=== PATIENT | male | born 1970 | race Caucasian/White ===

== ENCOUNTER 2017-02-24 23:38 | Emergency (ER) | payer SELFPAY ==
[~2017-02-24] VITALS: Ht 180.3 cm; Wt 95.3 kg
[~2017-02-24 23:38] MED LIST: BACTRIM DS TAB1 EAC1 ORAL; BACTRIM-DS1 EA ORAL; CLINDAMYCIN HC300 MG ORAL; COLACE100 MG ORAL; IBUPROFEN600 M1 PO; KEFLEX500 MG ORAL; NKM; NORCO 5-325 TA1 EACH ORAL; RANITIDINE HCL150 MG ORAL; VIBRAMYCIN100 MG ORAL; VICODIN 5-5001 EACH ORAL
[2017-02-25] MEDS ORDERED: VALACYCLOVIR500 MG ORAL (00:04)
[2017-02-25] MEDS ORDERED: HYDROCODON-ACE1 EA15 ORAL (00:04)
--- NOTE | 2017-02-25 00:04 | Emergency Room Report ---
History of Present Illness General Chief Complaint: Skin Rash/Abscess Source: Patient Present Illness HPI Is a 46-year-old male with a history of HIV. He's been off of his medicine for cleared after 2 years. Unknown CD4 count. Unknown viral load. He present with a rash to the right side of his body. Onset for 3 days now. No fever or chills. Pain is severe 10 out of 10. No trauma. No other complaint. Allergies: Coded Allergies: No Known Allergies (Unverified , 01/30/16) Patient History Past Medical History: see triage record, old chart reviewed, HIV Past Surgical History: other Pertinent Family History: none Social History: Reports: alcohol use, drug use - Methamphetamine, smoking Immunizations: other Reviewed Nursing Documentation: PMH: Agreed, PSxH: Agreed Nursing Documentation-PMH Hx Hypertension: No Hx Pacemaker: No Hx Asthma: No Hx COPD: No Hx Diabetes: No Hx Cancer: No Hx Gastrointestinal Problems: Yes - Ingunial hernia Hx Dialysis: No Hx Neurological Problems: No Hx Cerebrovascular Accident: No Hx Seizures: No Review of Systems Eye: Denies: blurred vision, eye pain ENT: Denies: ear pain, nose congestion, throat swelling Respiratory: Denies: cough, shortness of breath Cardiovascular: Denies: chest pain, palpitations Gastrointestinal: Denies: abdominal pain, diarrhea, nausea, vomiting Musculoskeletal: Denies: back pain, joint pain Skin: Reports: rash Neurological: Denies: headache, numbness Endocrine: Denies: increased thirst, increased urine Hematologic/Lymphatic: Denies: easy bruising All Other Systems: negative except mentioned in HPI Physical Exam Vital Signs Date Time Temp Pulse Resp B/P Pulse Ox O2 Delivery O2 Flow Rate FiO2 02/24/17 23:40 97.9 80 18 155/92 99 Room Air vitals with hypertension Sp02 EP Interpretation: reviewed, normal General Appearance: well appearing, no apparent distress, alert Head: normocephalic, atraumatic Eyes: bilateral eye EOMI, bilateral eye PERRL ENT: hearing grossly normal, normal pharynx Neck: full range of motion, supple, no meningismus Respiratory: chest non-tender, lungs clear, normal breath sounds Cardiovascular #1: regular rate, rhythm, no murmur Gastrointestinal: normal bowel sounds, non tender, no mass, no organomegaly, no bruit, non-distended Musculoskeletal: back normal, gait/station normal, normal range of motion Psychiatric: mood/affect normal Skin: warm/dry, other - He has an extensive herpetic lesion of the T12/L1 distribution on the right. Extensive vesicles. Medical Decision Making Diagnostic Impression: Primary Impression: Herpes zoster Qualified Codes: B02.9 - Zoster without complications Additional Impressions: Methamphetamine abuse HIV (human immunodeficiency virus infection) ER Course Patient with extensive shingles. Most likely because of uncontrolled HIV and high viral load with poor immune system. No systemic spread however. No fever. We'll discharge home with pain medication and anti-viral medication. Last Vital Signs Date Time Temp Pulse Resp B/P Pulse Ox O2 Delivery O2 Flow Rate FiO2 02/24/17 23:40 97.9 80 18 155/92 99 Room Air Status: improved Disposition: HOME, SELF-CARE Condition: Stable Scripts Valacyclovir Hcl* (VALTREX*) 500 Mg Tablet 1000 MG ORAL TID, #42 TAB Prov: PORFIRIO JERONIMO M.D. 02/25/17 Hydrocodone/Acetaminophen 5-325* (HYDROCODONE/ACETAMINOPHEN 5-325*) 1 Each Tablet 1 TAB ORAL Q6H Y for For Pain, #30 TAB 0 Refills Prov: PORFIRIO JERONIMO M.D. 02/25/17 Referrals: NOT CHOSEN [facility]/,REFERRING (PCP) Additional Instructions: Followup with your DrChristian in 7 days. You can also followup at [facility] for your HIV management. Return if symptom worsen. Abstain from drugs and alcohol. PORFIRIO JERONIMO M.D. Feb 25, 2017 00:04
[2017-02-25 00:08] VITALS: BP 155/92
[2017-02-25] MEDS ORDERED: ACYCLOVIR400 MG ORAL (00:11)
== END 2017-02-25 00:08 | disposition home or self-care (01) ==
LOC: EMR 23:45
DX: B02.9 Zoster without complications (principal); F15.10 Other stimulant abuse, uncomplicated
CPT/HCPCS: 96372; 99284; J1170

== ENCOUNTER 2017-03-11 12:27 | Emergency (ER) | payer SELFPAY ==
[~2017-03-11] VITALS: Ht 180.3 cm; Wt 95.3 kg
[~2017-03-11 12:27] MED LIST changes: +ACYCLOVIR400 MG ORAL; +HYDROCODON-ACE1 EA15 ORAL; +VALACYCLOVIR500 MG ORAL
[2017-03-11] MEDS ORDERED: CEPHALEXIN500 MG ORAL (13:09)
[2017-03-11] MEDS ORDERED: VALACYCLOVIR500 MG ORAL (13:09)
[2017-03-11] MEDS ORDERED: PREDNISONE20 MG ORAL (13:09)
[2017-03-11] MEDS ORDERED: NORCO 5-325 TA1 EAC1 ORAL (13:09)
[2017-03-11] MEDS ORDERED: Norco 5mg/325mg tab ORAL ONE (13:15)
[2017-03-11 14:59] VITALS: BP 119/74
[2017-03-11 15:02] VITALS: BP 119/74
--- NOTE | 2017-03-11 15:38 | Emergency Room Report ---
History of Present Illness General Chief Complaint: Skin Rash/Abscess Present Illness HPI The patient is a 38-year-old male with history of HIV presenting for shingles outbreak. The patient was seen in this emergency department 2 weeks prior for the same complaint and was unable to fill any medications due to insurance problems. He states that the rash is still the same. Pain is a 10 out of 10 burning sensation to the right abdomen. Does not radiate. Worse with touch. He denies any fever or chills Allergies: Coded Allergies: No Known Allergies (Unverified , 01/30/16) Patient History Past Medical History: see triage record Pertinent Family History: none Reviewed Nursing Documentation: PMH: Agreed, PSxH: Agreed Nursing Documentation-PMH Hx Hypertension: No Hx Pacemaker: No Hx Asthma: No Hx COPD: No Hx Diabetes: No Hx Cancer: No Hx Gastrointestinal Problems: Yes - Ingunial hernia Hx Dialysis: No Hx Neurological Problems: No Hx Cerebrovascular Accident: No Hx Seizures: No Review of Systems All Other Systems: negative except mentioned in HPI Physical Exam Vital Signs Date Time Temp Pulse Resp B/P Pulse Ox O2 Delivery O2 Flow Rate FiO2 03/11/17 12:48 98.2 88 20 119/74 100 Room Air Sp02 EP Interpretation: reviewed, normal General Appearance: no apparent distress, alert, GCS 15, non-toxic Head: normocephalic, atraumatic Eyes: bilateral eye PERRL, bilateral eye normal inspection ENT: hearing grossly normal, normal pharynx, no angioedema, normal voice Musculoskeletal: back normal, gait/station normal, normal range of motion Neurologic: alert, oriented x3, responsive, motor strength/tone normal, sensory intact, speech normal Psychiatric: judgement/insight normal, memory normal, mood/affect normal, no suicidal/homicidal ideation Skin: rash - macular with blistering of the R thoracic region. Does not pass midline. Foul odor. Erythema surrounding the area Lymphatic: no adenopathy Medical Decision Making PA Attestation Dr. Melchor is my supervising physician. Patient management was discussed with my supervising physician Diagnostic Impression: Primary Impression: Cellulitis Qualified Codes: L03.319 - Cellulitis of trunk, unspecified Additional Impression: Shingles Qualified Codes: B02.8 - Zoster with other complications ER Course The patient is a 38-year-old male with history of HIV presenting for shingles outbreak. Ddx considered include but not limited to insect bite, contact dermatitis, eczema, cellulitis, shingles, among others PE; afebrile. NAD There is a right-sided midthoracic shingles outbreak. Macular with blistering. There surrounding erythema. Tender to palpation. Foul odor present. There is yellow discharge. The patient will be discharged home with a prescription for antivirals, antibiotics, and pain medication. The patient is immunocompromised. He is to follow up with primary doctor. ER precautions given Last Vital Signs Date Time Temp Pulse Resp B/P Pulse Ox O2 Delivery O2 Flow Rate FiO2 03/11/17 15:02 98.3 82 20 119/74 100 Room Air Status: improved Disposition: HOME, SELF-CARE Condition: Improved Scripts Cephalexin* (KEFLEX*) 500 Mg Capsule 500 MG ORAL EVERY 12 HOURS, #14 CAP 0 Refills Prov: ANDERSON LANE P.A. 03/11/17 Hydrocodone Bit/Acetaminophen 5-325* (NORCO 5-325 TABLET*) 1 Each Tablet 1 TAB ORAL Q6HR Y for For Pain, #10 TAB Prov: CATERINAANANDERSON P.A. 03/11/17 Prednisone* (PREDNISONE*) 20 Mg Tablet 40 MG ORAL DAILY, #10 TAB Prov: TERZIANKARLEYY P.A. 03/11/17 Valacyclovir Hcl* (VALTREX*) 500 Mg Tablet 1000 MG ORAL Q8HR for 7 Days, TAB Prov: TERZIANANDERSON P.A. 03/11/17 Referrals: NOT CHOSEN [facility],REFERRING (PCP) Patient Instructions: Cellulitis, Shingles Additional Instructions: I discussed my findings with the patient. All questions and concerns have been answered. Treatment and medication compliance have been addressed. I advised the patient that they need to follow up with PMD in 3-5 days. Return to ED if symptoms worsen, new symptoms arise, or if needed for any reason. Patient verbalized understanding of discharge instructions. ANDERSON LANE Mar 11, 2017 15:38
== END 2017-03-11 14:30 | disposition home or self-care (01) ==
LOC: EMR 14:00
DX: B02.8 Zoster with other complications (principal); L03.319 Cellulitis of trunk, unspecified
CPT/HCPCS: 99284

== ENCOUNTER 2018-04-07 10:45 | Emergency (ER) | payer MEDICAID ==
[~2018-04-07] VITALS: Ht 185.4 cm; Wt 81.6 kg
[~2018-04-07 10:45] MED LIST changes: +CEPHALEXIN500 MG ORAL; +NORCO 5-325 TA1 EAC1 ORAL; +PREDNISONE20 MG ORAL
[2018-04-07] MEDS ORDERED: Albuterol ud Inhalation HHN ONE (11:00)
[2018-04-07 11:10] VITALS: BP 148/98
[2018-04-07] MEDS ORDERED: TESSALON PERLE100 MG ORAL (11:25)
[2018-04-07] MEDS ORDERED: VENTOLIN HFA18 GM INH (11:25)
--- NOTE | 2018-04-07 11:25 | Emergency Room Report ---
History of Present Illness General Chief Complaint: Upper Respiratory Illness Source: Patient Present Illness HPI This patient c/o nonproductive cough one day. No fever. No cp. He had a hernia repair at [facility] about a week ago and had been recuperating fine. He does smoke 1/ 2 ppd. No leg pain/swelling. Allergies: Coded Allergies: No Known Allergies (Unverified , 01/30/16) Nursing Documentation-PMH Hx Hypertension: No Hx Pacemaker: No Hx Asthma: No Hx COPD: No Hx Diabetes: No Hx Cancer: No Hx Dialysis: No Hx Neurological Problems: No Hx Cerebrovascular Accident: No Hx Seizures: No Review of Systems Constitutional: Denies: fever Eye: Denies: acuity changes Respiratory: Reports: see HPI, cough; Denies: shortness of breath Cardiovascular: Denies: chest pain Gastrointestinal: Denies: nausea, vomiting Skin: Denies: rash Neurological: Denies: headache All Other Systems: negative except mentioned in HPI Physical Exam Vital Signs Date Time Temp Pulse Resp B/P (MAP) Pulse Ox O2 Delivery O2 Flow Rate FiO2 04/07/18 10:50 98.2 86 18 148/98 98 Room Air 98.2 General Appearance: well appearing, no apparent distress Head: normocephalic, atraumatic ENT: hearing grossly normal, normal voice Neck: full range of motion, supple Respiratory: no respiratory distress, speaking full sentences, other - frequent nonproductive cough; tobacco odor Musculoskeletal: no calf tenderness Neurologic: alert, normal gait Psychiatric: mood/affect normal Skin: no rash Medical Decision Making Diagnostic Impression: Primary Impression: Acute bronchitis Chest X-Ray Diagnostic Results Chest X-Ray Diagnostic Results : Chest X-Ray Ordered: Yes # of Views/Limited/Complete: 1 View Indication: Shortness of Breath EP Interpretation: Yes Interpretation: no consolidation, no effusion, no pneumothorax, no acute cardiopulmonary disease Last Vital Signs Date Time Temp Pulse Resp B/P (MAP) Pulse Ox O2 Delivery O2 Flow Rate FiO2 04/07/18 11:10 98.2 86 18 148/98 98 Room Air 98.2 Scripts Benzonatate* (TESSALON PERLE*) 100 Mg Capsule 200 MG ORAL THREE TIMES A DAY, #30 PERLE Prov: Lai Asher M.D. 04/07/18 Albuterol Sulfate (VENTOLIN HFA) 18 Gm Hfa.aer.ad 1 PUFF INH EVERY 6 HOURS, #18 GM 0 Refills Prov: Lai sAher M.D. 04/07/18 [facility] ([facility]P) Patient Instructions: Acute Bronchitis, [id number] Lai Asher M.D. Apr 07, 2018 11:25
[2018-04-07 11:46] VITALS: BP 118/77
--- NOTE | 2018-04-07 13:44 | Diagnostic Imaging Report ---
Indication: Shortness of breath Technique: One view of the chest Comparison: none Findings: Lungs and pleural spaces are clear. Heart size is normal Impression: No acute process
== END 2018-04-07 11:50 | disposition home or self-care (01) ==
LOC: EMR 11:14
DX: J20.9 Acute bronchitis, unspecified (principal); F17.210 Nicotine dependence, cigarettes, uncomplicated
CPT/HCPCS: 71045; 94640; 94664; 99284

== ENCOUNTER 2018-05-14 05:12 | Emergency (ER) | payer MEDICAID ==
[~2018-05-14] VITALS: Ht 180.3 cm; Wt 88.5 kg
[~2018-05-14 05:12] MED LIST changes: +TESSALON PERLE100 MG ORAL; +VENTOLIN HFA18 GM INH
[2018-05-14 05:37] VITALS: BP 133/86
[2018-05-14] MEDS ORDERED: ACYCLOVIR400 MG ORAL (05:52)
--- NOTE | 2018-05-14 05:56 | Emergency Room Report ---
History of Present Illness General Chief Complaint: Skin Rash/Abscess Source: Medical Record Present Illness HPI Patient is a 48-year-old male who presented after a painless ulcer to his penis. This had been present for several weeks. Patient had prior history of HIV. He is currently off medications. Patient reported having increased of lesion to the dorsum. He denies recent trauma. He states that he had recent productive sex prior to lesion appearing. He denies any fever or pain to the lesion. He reports having a previous negative syphilis test. Allergies: Coded Allergies: No Known Allergies (Unverified , 01/30/16) Patient History Reviewed Nursing Documentation: PMH: Agreed; PSxH: Agreed Nursing Documentation-PMH Past Medical History: No History, Except For Hx Hypertension: No Hx Pacemaker: No Hx Asthma: No Hx COPD: No Hx Diabetes: No Hx Cancer: No Hx Dialysis: No Hx Neurological Problems: No Hx Cerebrovascular Accident: No Hx Seizures: No Review of Systems All Other Systems: negative except mentioned in HPI Physical Exam Vital Signs Date Time Temp Pulse Resp B/P (MAP) Pulse Ox O2 Delivery O2 Flow Rate FiO2 05/14/18 05:19 97.6 95 21 133/86 96 Room Air 97.5 General Appearance: well appearing, no apparent distress, alert, GCS 15 Head: normocephalic, atraumatic ENT: hearing grossly normal, normal voice, other - labial herpes Neck: full range of motion, supple Respiratory: no respiratory distress, speaking full sentences Genitourinary: other - penile ulcer Musculoskeletal: no calf tenderness Neurologic: normal inspection, alert, oriented x3, telephone information clerk III-XII nml as tested, normal gait Psychiatric: mood/affect normal Skin: other - ulcer to dosum of penile shaft about 0.3cm in diameter no bleeding Medical Decision Making Diagnostic Impression: Primary Impression: Penile ulcer ER Course Presented for the ulcer. The differential diagnosis included but was not limited to syphilis, chancroid, traumatic injury, basal cell carcinoma among others. Patient has a benign exam and does not appear to require any further imaging or laboratory testing at this time. The patient be to treated for syphilis. He was advised to follow-up with his HIV doctor for further evaluation and treatment of STDs. He is given prescription for acyclovir.The patient is advised to follow up with primary care doctor in 1-2 days. Patient is advised to return if any worsening condition or if any changes in status that are concerning. This report is dictated with [employer] janitor and cleaner software which may occasionally lead to discrepancies related to use of this software. Last Vital Signs Date Time Temp Pulse Resp B/P (MAP) Pulse Ox O2 Delivery O2 Flow Rate FiO2 05/14/18 05:37 97.5 95 21 133/86 96 Room Air 97.5 Status: improved Disposition: HOME, SELF-CARE Condition: Stable Scripts Acyclovir* (ACYCLOVIR*) 400 Mg Tablet 400 MG ORAL FIVE TIMES A DAY, #35 TAB Prov: Zion Hernandez MD 05/14/18 Patient Instructions: Herpes Labialis, Skin Ulcer Zion Hernandez MD May 14, 2018 05:56
[2018-05-14] MEDS ORDERED: Bicillin LA 2.4MMU/4ML SYR IM ONE (06:00)
[2018-05-14 06:14] VITALS: BP 133/86
== END 2018-05-14 06:15 | disposition home or self-care (01) ==
LOC: EMR 05:48
DX: N48.5 Ulcer of penis (principal)
CPT/HCPCS: 96372; 99283

== ENCOUNTER 2018-07-23 21:29 | Emergency (ER) | payer MEDICAID ==
[~2018-07-23] VITALS: Ht 180.3 cm; Wt 90.7 kg
[2018-07-23 21:50] VITALS: BP 118/76
[2018-07-23] MEDS ORDERED: Dicyclomine HCl 10mg/5ml oral soln ORAL ONE (22:00)
[2018-07-23] MEDS ORDERED: Lidocaine 2% Visc 15ml soln ORAL ONE (22:00)
[2018-07-23] MEDS ORDERED: Mylanta II UD 30ml ORAL ONE (22:00)
--- NOTE | 2018-07-23 22:40 | Diagnostic Imaging Report ---
EXAM: XR Chest, 1 View CLINICAL HISTORY: ABD PAIN TECHNIQUE: Frontal view of the chest. COMPARISON: Chest radiograph dated 04/07/18. FINDINGS: Lungs: Unremarkable. No consolidation. Pleural space: Unremarkable. No pneumothorax. Heart: Unremarkable. No cardiomegaly. Mediastinum: Unremarkable. Bones/joints: Unremarkable. Upper abdomen: Mild elevation of the left hemidiaphragm. IMPRESSION: No radiographic evidence of acute cardiopulmonary disease.
[2018-07-23] MEDS ORDERED: RANITIDINE HCL150 MG ORAL (22:57)
[2018-07-23 23:01] VITALS: BP 118/76
--- NOTE | 2018-07-24 01:14 | Emergency Room Report ---
History of Present Illness General Chief Complaint: General Complaint Source: Patient Present Illness HPI 48-year-old male presents ED for evaluation. Patient presenting with painful swallowing 2 days. Throbbing, 8 out of 10, nonradiating. Denies fevers or chills. Denies cough. Denies chest pain or shortness of breath. States he is able to keep food down. Denies nausea or vomiting. Notes history of HIV and states he is compliant with his medications however his CD4 counts are low. No other aggravating relieving factors. Denies any other associated symptoms Allergies: Coded Allergies: No Known Allergies (Unverified , 01/30/16) Patient History Past Medical History: HIV Pertinent Family History: none Social History: Denies: smoking, alcohol use, drug use Immunizations: UTD Reviewed Nursing Documentation: PMH: Agreed; PSxH: Agreed Nursing Documentation-PMH Hx Hypertension: No Hx Pacemaker: No Hx Asthma: No Hx COPD: No Hx Diabetes: No Hx Cancer: No Hx Dialysis: No Hx Neurological Problems: No Hx Cerebrovascular Accident: No Hx Seizures: No Review of Systems All Other Systems: negative except mentioned in HPI Physical Exam Vital Signs Date Time Temp Pulse Resp B/P (MAP) Pulse Ox O2 Delivery O2 Flow Rate FiO2 18 21:38 98.6 88 16 118/76 96 Room Air Sp02 EP Interpretation: reviewed, normal General Appearance: no apparent distress, alert, GCS 15, non-toxic Head: normocephalic Eyes: bilateral eye normal inspection, bilateral eye PERRL ENT: hearing grossly normal, normal pharynx, no angioedema, normal voice, other - no exudates Neck: full range of motion, supple, no meningismus, supple/symm/no masses Respiratory: chest non-tender, lungs clear, normal breath sounds, speaking full sentences Cardiovascular #1: regular rate, rhythm, no edema Gastrointestinal: normal inspection Rectal: deferred Genitourinary: no CVA tenderness Musculoskeletal: normal inspection Neurologic: alert, oriented x3, responsive, motor strength/tone normal, sensory intact, speech normal Psychiatric: normal inspection Skin: normal inspection Lymphatic: normal inspection Medical Decision Making Diagnostic Impression: Primary Impression: Dysphagia Qualified Codes: R13.10 - Dysphagia, unspecified ER Course Hospital Course 48-year-old male presents to ED complaining of painful swallowing Differential diagnoses include: thrush, pharyngitis, GERD Clinical course Patient placed on stretcher. After initial history, physical exam reveals a middle aged male in no acute distress. Bilateral TM unremarkable. There is no pharyneal erythema. no exudates. no thrush. no lymphadenopathy EKGnormal sinus rhythm no acute ischemic changes interpreted by me Chest x-ray no acute process Patient given GI cocktail and Pepcid with symptoms improved. Consideration for esophagitis versus GERD. We will discharge with trial of zantac. Safe for discharge close outpatient follow-up with PMD Diagnosis - dysphagia Stable and discharged home with prescriptions for zantac. Instructed to followup with PMD. return to ED if symptoms recur or worsen EKG Diagnostic Results Rate: normal Rhythm: NSR ST Segments: no acute changes ASA given to the pt in ED: No Rhythm Strip Diag. Results EP Interpretation: yes Rhythm: NSR, no PVC's, no ectopy Chest X-Ray Diagnostic Results Chest X-Ray Diagnostic Results : Chest X-Ray Ordered: Yes # of Views/Limited/Complete: 1 View Indication: Chest Pain EP Interpretation: Yes Interpretation: no consolidation, no effusion, no pneumothorax, no acute cardiopulmonary disease Impression: No acute disease Electronically Signed by: Electronically signed by Hayden Vance MD Last Vital Signs Date Time Temp Pulse Resp B/P (MAP) Pulse Ox O2 Delivery O2 Flow Rate FiO2 07/23/18 23:01 98.6 83 16 118/76 96 Room Air Status: improved Disposition: HOME, SELF-CARE Condition: Stable Scripts Ranitidine Hcl* (ZANTAC*) 150 Mg Tablet 150 MG ORAL TWICE A DAY, #30 TAB Prov: Hayden Vance MD 07/23/18 Patient Instructions: Gastroesophageal Reflux Disease, Adult, [id number] Hayden Vance MD Jul 24, 2018 01:14
== END 2018-07-23 23:02 | disposition home or self-care (01) ==
LOC: EMR 22:15
DX: R13.10 Dysphagia, unspecified (principal)
CPT/HCPCS: 71045; 93005; 99283

== ENCOUNTER 2018-10-11 23:44 | Emergency (ER) | payer MEDICAID ==
[~2018-10-11] VITALS: Ht 180.3 cm; Wt 90.7 kg
[2018-10-11] MEDS ORDERED: BIKTARVY 50-201 EACH PO (23:52)
[2018-10-12 00:05] VITALS: BP 112/86
--- NOTE | 2018-10-12 00:05 | NUR ---
ED Nurse Note: RECIEVED PT FROM HOME ON [facility] AWAKE, ALERT AND ORIENTED X 4, PT WITH C/O FLU LIKE S/S FOR PAST 4 DAYS, HEADACHE, GEN WEAKNESS, NAUSEA AND JUST NOT FEELING WELL, PT DENEIS CP, OR RESPIRATORY DISTRESS, MILD COUGH NOTED, NON-PRODUCTIVE, PT PLACED ON MONITORING, WILL RESUME CARE ORDERED AND CLOSELY MONITOR.
[2018-10-12] MEDS ORDERED: Albuterol ud Inhalation HHN ONE (00:30)
[2018-10-12] MEDS ORDERED: ALBUTEROL SULF8.5 GM INH (00:56)
[2018-10-12] MEDS ORDERED: TAMIFLU75 MG ORAL (00:56)
[2018-10-12] MEDS ORDERED: IBUPROFEN600 MG ORAL (00:56)
--- NOTE | 2018-10-12 00:57 | Emergency Room Report ---
History of Present Illness General Chief Complaint: Upper Respiratory Illness Source: Patient Present Illness [facility] This is a 48-year-old male with history HIV. He presents with fever and shortness of breath and cough for the last 2 days. Diffuse body pain. No nausea no vomiting. Decreased appetite. Pain is 9 out of 10. Coughing is nonproductive nature. Denies any other complaint. Allergies: Coded Allergies: No Known Allergies (Unverified , 01/30/16) Patient History Past Medical History: see triage record, old chart reviewed, HIV Past Surgical History: none Pertinent Family History: none Social History: Denies: smoking Immunizations: other Reviewed Nursing Documentation: PMH: Agreed; PSxH: Agreed Nursing Documentation-PMH Past Medical History: No History, Except For Hx Hypertension: No Hx Pacemaker: No Hx Asthma: No Hx COPD: No Hx Diabetes: No Hx Cancer: No Hx Dialysis: No Hx Neurological Problems: No Hx Cerebrovascular Accident: No Hx Seizures: No Review of Systems Constitutional: Reports: fever, malaise, weakness Eye: Denies: eye pain, blurred vision ENT: Denies: ear pain, nose congestion, throat swelling Respiratory: Reports: cough, shortness of breath Cardiovascular: Denies: chest pain, palpitations Gastrointestinal: Denies: abdominal pain, diarrhea, nausea, vomiting Musculoskeletal: Reports: muscle pain; Denies: back pain, joint pain Skin: Denies: rash Neurological: Denies: headache, numbness Endocrine: Denies: increased thirst, increased urine Hematologic/Lymphatic: Denies: easy bruising All Other Systems: negative except mentioned in HPI Physical Exam Vital Signs Date Time Temp Pulse Resp B/P (MAP) Pulse Ox O2 Delivery O2 Flow Rate FiO2 10/11/18 23:47 99.1 109 28 112/86 95 10/12/18 00:46 Room Air 21 vitals with low-grade fever Sp02 EP Interpretation: reviewed, normal General Appearance: well appearing, no apparent distress, alert Head: normocephalic, atraumatic Eyes: bilateral eye PERRL, bilateral eye EOMI ENT: hearing grossly normal, normal pharynx Neck: full range of motion, supple, no meningismus Respiratory: chest non-tender, lungs clear, normal breath sounds Cardiovascular #1: regular rate, rhythm, no murmur Gastrointestinal: normal bowel sounds, non tender, no mass, no organomegaly, no bruit, non-distended Musculoskeletal: back normal, gait/station normal, normal range of motion Psychiatric: mood/affect normal Skin: warm/dry Medical Decision Making Diagnostic Impression: Primary Impression: Influenza-like illness ER Course Patient with flulike illness. No evidence of ACS, PE, dissection to name a few. Chest x-ray clear. Even though it has been 48 hours, we'll put him on Tamiflu because of his HIV status. Chest X-Ray Diagnostic Results Chest X-Ray Diagnostic Results : Chest X-Ray Ordered: Yes # of Views/Limited/Complete: 1 View Indication: Shortness of Breath EP Interpretation: Yes Interpretation: no consolidation, no effusion, no pneumothorax, no acute cardiopulmonary disease Impression: No acute disease Electronically Signed by: Bryan Pereyra MD Last Vital Signs Date Time Temp Pulse Resp B/P (MAP) Pulse Ox O2 Delivery O2 Flow Rate FiO2 10/12/18 00:47 95 21 95 Room Air 21 10/11/18 23:47 99.1 112/86 Status: improved Disposition: HOME, SELF-CARE Condition: Stable Scripts Oseltamivir Phosphate (Tamiflu) 75 Mg Capsule 75 MG ORAL TWICE A DAY, #10 CAP Prov: Bryan Pereyra MD 10/12/18 Albuterol Sulfate* (ALBUTEROL SULFATE MDI*) 8.5 Gm Hfa.aer.ad 2 PUFF INH Q4H PRN for cough/wheezing, #1 EA 0 Refills Prov: Bryan Pereyra MD 10/12/18 Ibuprofen* (MOTRIN*) 600 Mg Tablet 600 MG ORAL THREE TIMES A DAY, #30 TAB 0 Refills Prov: Bryan Pereyra MD 10/12/18 Ref[facility]: [facility] (PCP) Additional Instructions: Increase fluids. Follow-up with your DrChristian in 3-5 days for recheck. Return if worse. Bryan Pereyra MD Oct 12, 2018 00:57
[2018-10-12 01:00] VITALS: BP 107/84
--- NOTE | 2018-10-12 01:05 | NUR ---
PT BEING D/C TO HOME, PT GIVEN F/U INFO, AFTER CARE INSTRUCTIONS AND RE-VERBALIZES PROPER MEDICATION ADMINISTRATION, PT IS AMBULATORY, NO CP, NO SOB, ARMBAND REMOVED, NAD NOTED DURING D/C TO HOME.
--- NOTE | 2018-10-12 01:10 | NUR ---
ED Nurse Note: PT NOTED TO NOT HAVE HAD MEDS, MEDS GIVEN, WILL DISCHARGE AFTER MED EFFECTIVENESS DONE, AWARE, PT RESTING IN BED QUIETLY.
[2018-10-12 02:45] VITALS: BP 124/62
[2018-10-12 03:00] VITALS: BP 124/62
--- NOTE | 2018-10-12 03:00 | NUR ---
ED Nurse Note: MEDS GIVEN EFFECTIVE, PT NOW BEING D/C TO HOME, PT IS AWAKE, ALERT AND ORIENTED X 4, AMBULATORY, NO CP, NO SOB, PAIN LEVEL AT 3/10, PT FAMILY ARRIVED FOR HIS TRANSPORT, PT ARMBAND REMOVED, GIVEN F/U INFO,A FTER CARE INSTRUCTIONS AND PRESCRIPTIONS, NAD NOTED UDRING D/C TO HOME.
--- NOTE | 2018-10-12 09:24 | Diagnostic Imaging Report ---
Indication: Shortness of breath Technique: One view of the chest Comparison: 07/23/2018 Findings: Suboptimal inspiration currently. Lungs and pleural spaces are clear. The heart size is normal. Impression: No acute process
== END 2018-10-12 03:05 | disposition home or self-care (01) ==
LOC: EMR 23:59
DX: J11.1 Influenza due to unidentified influenza virus with other respiratory manifestations (principal)
CPT/HCPCS: 71045; 94640; 94664; 99284

== ENCOUNTER 2019-02-28 02:42 | Emergency (ER) | payer MEDICAID ==
[~2019-02-28] VITALS: Ht 180.3 cm; Wt 95.3 kg
[~2019-02-28 02:42] MED LIST changes: +ALBUTEROL SULF8.5 GM INH; +BIKTARVY 50-201 EACH PO; +IBUPROFEN600 MG ORAL; +TAMIFLU75 MG ORAL
--- NOTE | 2019-02-28 02:53 | NUR ---
ED Nurse Note: WAlk-in patient presents with complaints of trouble swallowing x 1 week.
[2019-02-28 02:54] VITALS: BP 127/95
[2019-02-28] MEDS ORDERED: Clindamycin 150mg cap ORAL ONE (03:00)
[2019-02-28] MEDS ORDERED: AUGMENTIN 875-1 EAC1 ORAL (03:04)
--- NOTE | 2019-02-28 03:04 | Emergency Room Report ---
History of Present Illness General Chief Complaint: Upper Respiratory Illness Source: Patient Present Illness HPI This is a 48-year-old male with no past medical history. He presents with chief complaint of difficulty swallowing. Onset the last 3 to 4 days. No fever chills but most of his pain is on the left side. Worse with eating. No drooling. No fever chills but does have left ear pain also. No cough or congestion. Allergies: Coded Allergies: No Known Allergies (Unverified , 01/30/16) Patient History Past Medical History: see triage record, old chart reviewed Past Surgical History: none Pertinent Family History: none Social History: Denies: smoking Immunizations: other Reviewed Nursing Documentation: PMH: Agreed; PSxH: Agreed Nursing Documentation-PMH Hx Hypertension: No Hx Pacemaker: No Hx Asthma: No Hx COPD: No Hx Diabetes: No Hx Cancer: No Hx Dialysis: No Hx Cerebrovascular Accident: No Hx Seizures: No Review of Systems Eye: Denies: eye pain, blurred vision ENT: Reports: throat swelling; Denies: ear pain, nose congestion Respiratory: Denies: cough, shortness of breath Cardiovascular: Denies: chest pain, palpitations Gastrointestinal: Denies: abdominal pain, diarrhea, nausea, vomiting Musculoskeletal: Denies: back pain, joint pain Skin: Denies: rash Neurological: Denies: headache, numbness Endocrine: Denies: increased thirst, increased urine Hematologic/Lymphatic: Denies: easy bruising All Other Systems: negative except mentioned in HPI Physical Exam Vital Signs Date Time Temp Pulse Resp B/P (MAP) Pulse Ox O2 Delivery O2 Flow Rate FiO2 02/28/19 02:50 97.9 82 21 127/95 (106) 97 Room Air Vitals normal Sp02 EP Interpretation: reviewed, normal General Appearance: well appearing, no apparent distress, alert Head: normocephalic, atraumatic Eyes: bilateral eye PERRL, bilateral eye EOMI ENT: hearing grossly normal, normal pharynx, tonsillar swelling, pharyngeal erythema, tonsillar exudate, other - No trismus. Left tonsil was enlarged with exudates and erythema. Neck: full range of motion, supple, no meningismus Respiratory: chest non-tender, lungs clear, normal breath sounds Cardiovascular #1: regular rate, rhythm, no murmur Gastrointestinal: normal bowel sounds, non tender, no mass, no organomegaly, no bruit, non-distended Musculoskeletal: back normal, gait/station normal, normal range of motion Psychiatric: mood/affect normal Medical Decision Making Diagnostic Impression: Primary Impression: Acute tonsillitis Qualified Codes: J03.90 - Acute tonsillitis, unspecified ER Course Patient presents with acute tonsillitis. No evidence of peritonsillar abscess or retropharyngeal abscess or Phong angina. Will discharge home. Dose of antibiotics given here. Last Vital Signs Date Time Temp Pulse Resp B/P (MAP) Pulse Ox O2 Delivery O2 Flow Rate FiO2 02/28/19 02:54 82 21 Room Air 02/28/19 02:54 97.9 127/95 97 Status: unchanged Disposition: HOME, SELF-CARE Condition: Stable Scripts Amoxicillin/Potassium Clav 875-125* (AUGMENTIN 875-125 TABLET*) 1 Each Tablet 1 TAB ORAL TWICE A DAY, #14 TAB Prov: Bryan Pereyra MD 02/28/19 Referrals: [facility] (PCP) Additional Instructions: Increase fluids. Salt water gargle. Follow-up with your doctor in 3 to 5 days for recheck. Return if worse. Bryan Pereyra MD Feb 28, 2019 03:04
[2019-02-28 03:13] VITALS: BP 127/95
[2019-02-28 03:14] VITALS: BP 127/95
--- NOTE | 2019-02-28 03:14 | NUR ---
Medicated as ordered, tolerated well, breathing improved, no pain at this time.
== END 2019-02-28 03:15 | disposition home or self-care (01) ==
LOC: EMR 02:53
DX: J03.90 Acute tonsillitis, unspecified (principal)
CPT/HCPCS: 99282; J7512

== ENCOUNTER 2019-05-24 22:04 | Emergency (ER) | payer MEDICAID ==
[~2019-05-24] VITALS: Ht 182.9 cm; Wt 91.6 kg
[~2019-05-24 22:04] MED LIST changes: +AUGMENTIN 875-1 EAC1 ORAL
[2019-05-24] MEDS ORDERED: LORazepam Inj 2mg/ml 1ml IV ONE (22:15)
[2019-05-24] MEDS ORDERED: Ipratropium 0.02% Inh Soln 2.5ml UD HHN ONE (22:15)
[2019-05-24] MEDS ORDERED: Albuterol ud Inhalation HHN ONE (22:15)
[2019-05-24 22:17] VITALS: BP 144/86
--- NOTE | 2019-05-24 22:18 | NUR ---
ED Nurse Note: PT AMBULATED TO ED C/O SOB FOR 2-3 MONTHS. PT STATES HE SMOKED METH 2 HOURS PRIOR TO ARRIVAL. AO4. NAD. VSS.
--- NOTE | 2019-05-24 22:19 | Emergency Room Report ---
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 Allergies: Coded Allergies: No Known Allergies (Unverified , 01/30/16) Patient History Past Medical History: see triage record Social History: Reports: smoking, drug use - Amphetamine Reviewed Nursing Documentation: PMH: Agreed; PSxH: Agreed Nursing Documentation-PMH Past Medical History: No History, Except For Hx Hypertension: No Hx Pacemaker: No Hx Asthma: No Hx COPD: No Hx Diabetes: No Hx Cancer: No Hx Dialysis: No Hx Cerebrovascular Accident: No Hx Seizures: No Review of Systems All Other Systems: negative except mentioned in HPI Physical Exam Vital Signs Date Time Temp Pulse Resp B/P (MAP) Pulse Ox O2 Delivery O2 Flow Rate FiO2 05/24/19 22:12 97.0 88 13 94/77 (83) 92 Room Air Sp02 EP Interpretation: reviewed, normal General Appearance: well appearing, no apparent distress, alert Head: normocephalic, atraumatic Eyes: bilateral eye PERRL, bilateral eye EOMI ENT: uvula midline, moist mucus membranes Neck: supple, thyroid normal, supple/symm/no masses Respiratory: lungs clear, no respiratory distress, no retraction, no accessory muscle use, decreased breath sounds Cardiovascular #1: normal peripheral pulses, regular rate, rhythm, no edema, no gallop, no murmur Gastrointestinal: non tender, soft, no guarding, no rebound Musculoskeletal: normal inspection Neurologic: alert, oriented x3 Psychiatric: anxious Skin: no rash, warm/dry Medical Decision Making Diagnostic Impression: Primary Impression: Methamphetamine abuse ER Course 49-year-old male presents with acute medicine amphetamine use, patient in no acute distress however is very anxious, differential diagnosis includes ACS, drug abuse, pneumonia, chest pain EKG, no acute changes, chest x-ray no acute pathology Patient given Ativan with resolution of his symptoms patient was observed until he sobered He was counseled to stop utilizing methamphetamine Disposition home with return precautions Laboratory Tests Test 05/24/19 22:30 05/24/19 23:30 White Blood Count 6.1 K/UL (4.8-10.8) Red Blood Count 6.31 M/UL (4.70-6.10) H Hemoglobin 17.8 G/DL (14.2-18.0) Hematocrit 53.2 % (42.0-52.0) H Mean Corpuscular Volume 84 FL (80-99) Mean Corpuscular Hemoglobin 28.2 PG (27.0-31.0) Mean Corpuscular Hemoglobin Concent 33.4 G/DL (32.0-36.0) Red Cell Distribution Width 12.2 % (11.6-14.8) Platelet Count 251 K/UL (150-450) Mean Platelet Volume 7.0 FL (6.5-10.1) Neutrophils (%) (Auto) 71.8 % (45.0-75.0) Lymphocytes (%) (Auto) 17.2 % (20.0-45.0) L Monocytes (%) (Auto) 9.7 % (1.0-10.0) Eosinophils (%) (Auto) 0.7 % (0.0-3.0) Basophils (%) (Auto) 0.6 % (0.0-2.0) Prothrombin Time 12.5 SEC (9.30-11.50) H Prothrombin Time INR 1.2 (0.9-1.1) H PTT 25 SEC (23-33) Sodium Level 138 MMOL/L (136-145) Potassium Level 3.9 MMOL/L (3.5-5.1) Chloride Level 104 MMOL/L (98-107) Carbon Dioxide Level 24 MMOL/L (21-32) Anion Gap 11 mmol/L (5-15) Blood Urea Nitrogen 26 mg/dL (7-18) H Creatinine 1.8 MG/DL (0.55-1.30) H Estimate Glomerular Filtration Rate 40.0 mL/min (>60) Glucose Level 91 MG/DL (74-106) Calcium Level 9.0 MG/DL (8.5-10.1) Total Bilirubin 1.2 MG/DL (0.2-1.0) H Direct Bilirubin 0.3 MG/DL (0.0-0.3) Aspartate Amino Transferase (AST) 106 U/L (15-37) H Alanine Aminotransferase (ALT) 81 U/L (12-78) H Alkaline Phosphatase 82 U/L (46-116) Troponin I 0.019 ng/mL (0.000-0.056) Pro-B-Type Natriuretic Peptide 4584 pg/mL (0-125) H Total Protein 6.9 G/DL (6.4-8.2) Albumin 3.5 G/DL (3.4-5.0) Globulin 3.4 g/dL Albumin/Globulin Ratio 1.0 (1.0-2.7) Lipase 60 U/L (73-393) L Urine Opiates Screen Negative (NEGATIVE) Urine Barbiturates Screen Negative (NEGATIVE) Phencyclidine (PCP) Screen Negative (NEGATIVE) Urine Amphetamines Screen Positive (NEGATIVE) H Urine Benzodiazepines Screen Negative (NEGATIVE) Urine Cocaine Screen Negative (NEGATIVE) Urine Marijuana (THC) Screen Negative (NEGATIVE) EKG Diagnostic Results EKG Time: 21:13 EP Interpretation: NSR, rate 83, right axis deviation, no acute ST elevations Rate: normal Rhythm: NSR Rhythm Strip Diag. Results Rhythm Strip Time: 22:19 EP Interpretation: yes Rate: 91 Rhythm: NSR, no PVC's, no ectopy Chest X-Ray Diagnostic Results Chest X-Ray Diagnostic Results : Chest X-Ray Ordered: Yes # of Views/Limited/Complete: 1 View Indication: Chest Pain EP Interpretation: Yes Interpretation: no consolidation, no effusion, no pneumothorax, no acute cardiopulmonary disease Impression: No acute disease Electronically Signed by: Nolan Oconnor MD Last Vital Signs Date Time Temp Pulse Resp B/P (MAP) Pulse Ox O2 Delivery O2 Flow Rate FiO2 05/24/19 22:12 97.0 88 13 94/77 (83) 92 Room Air Disposition: HOME, SELF-CARE Condition: Stable Referrals: [facility] Patient Instructions: Stimulant Use Disorder-Methamphetamines Additional Instructions: The patient was provided with discharge instructions, notified to follow-up with a primary care doctor and or specialist in the next 24-48 hours, and to return to the ED if they have worsening of their symptoms. Please note that this report is being documented using [employer] technology. This can lead to erroneous entry secondary to incorrect interpretation by the dictating instrument. Nolan Oconnor MD May 24, 2019 22:19
--- NOTE | 2019-05-24 22:20 | NUR ---
ED Nurse Note: IV ACCESS ESTABLISHED. BLOOD COLLECTED; SENT DOWN TO LAB.
[2019-05-24 22:49] LABS: BASOPHILS % (AUTO) 0.6 % (0.0-2.0); EOSINOPHILS % (AUTO) 0.7 % (0.0-3.0); HEMATOCRIT 53.2 % (42.0-52.0); HEMOGLOBIN 17.8 G/DL (14.2-18.0); LYMPHOCYTES % (AUTO) 17.2 % (20.0-45.0); MEAN CORPUSCULAR VOLUME 84 FL (80-99); MONOCYTES % (AUTO) 9.7 % (1.0-10.0); NEUTROPHILS % (AUTO) 71.8 % (45.0-75.0); PLATELET COUNT 251 K/UL (150-450); RED BLOOD COUNT 6.31 M/UL (4.70-6.10); RED CELL DISTRIBUTION WIDTH 12.2 % (11.6-14.8); WHITE BLOOD COUNT 6.1 K/UL (4.8-10.8)
[2019-05-24 23:02] LABS: INR 1.2 (0.9-1.1)
[2019-05-24 23:03] LABS: ANION GAP 11 mmol/L (5-15); BLOOD UREA NITROGEN 26 mg/dL (7-18); CARBON DIOXIDE 24 MMOL/L (21-32); CHLORIDE 104 MMOL/L (98-107); CREATININE 1.8 MG/DL (0.55-1.30); POTASSIUM 3.9 MMOL/L (3.5-5.1); SODIUM 138 MMOL/L (136-145)
[2019-05-24 23:14] LABS: ALANINE AMINOTRANSFERASE 81 U/L (12-78); ALBUMIN 3.5 G/DL (3.4-5.0); ALKALINE PHOSPHATASE 82 U/L (46-116); ASPARTATE AMINO TRANSFERASE 106 U/L (15-37); BILIRUBIN,TOTAL 1.2 MG/DL (0.2-1.0)
[2019-05-24 23:19] LABS: BILIRUBIN,DIRECT 0.3 MG/DL (0.0-0.3)
--- NOTE | 2019-05-24 23:30 | NUR ---
ED Nurse Note: URINE COLLECTED; SENT DOWN TO LAB.
--- NOTE | 2019-05-25 00:42 | NUR ---
Note nerissaone in EDM - 05/25/19 at 0132 by [facility] ED Nurse Note: PATIENT REFUSED ADMISSION. EXPLAINED RISK AND BENEFITS X 3; PT REFUSED. ERMD NOTIFIED. ERMD DISCUSSED CARE WITH PT; STILL REFUSED. PER PT, OFFSPRING LEFT AT HOME AND CANNOT BE ADMITTED. SIGNED AMA.
[2019-05-25 01:39] VITALS: BP 135/86
--- NOTE | 2019-05-25 01:39 | NUR ---
ED Nurse Note: patient sleeping in bed with nad. vss. respirations even and unlabored
--- NOTE | 2019-05-25 03:15 | NUR ---
ED Nurse Note: patient sleeping in bed with nad. vitals stable. offered nourishment and toiletting; patient refused.
[2019-05-25 03:17] VITALS: BP 129/91
--- NOTE | 2019-05-25 04:16 | NUR ---
ED Nurse Note: patient awake alert and oriented x4. provided pt with nourishment. pt states he wants to go home. able to walk to bathroom with steady gait.
--- NOTE | 2019-05-25 04:30 | NUR ---
ER DISCHARGE NOTE: Patient is cleared to be discharged per ERMD, pt is aox4, on room air, with stable vital signs. pt was given dc and prescription instructions, pt was able to verbalize understanding, pt id band and iv site removed without complications. pt is able to ambulate with steady gait. pt took all belongings.
[2019-05-25 04:41] VITALS: BP 122/79
--- NOTE | 2019-05-25 10:28 | Diagnostic Imaging Report ---
Indication: Dyspnea Comparison: 10/12/2018 A single view chest radiograph was obtained. Findings: No definite infiltrate or pulmonary vascular congestion identified. The heart is enlarged. The bones are unremarkable. Impression: No acute disease
--- NOTE | 2019-05-25 16:19 | Cardiology Report ---
APPROVED REPORT EKG Measurement Heart [id number] TN [id number] Suspect arm lead reversal, interpretation assumes no reversal Normal sinus rhythm Right axis deviation Possible Right ventricular hypertrophy Possible Anteroseptal infarct, age undetermined Abnormal ECG
== END 2019-05-25 04:30 | disposition home or self-care (01) ==
LOC: EMR 22:20
DX: F15.10 Other stimulant abuse, uncomplicated (principal); B20 Human immunodeficiency virus [HIV] disease; F17.200 Nicotine dependence, unspecified, uncomplicated; R07.9 Chest pain, unspecified
CPT/HCPCS: 36415; 71045; 80053; 80307; 82248; 83690; 83880; 84484; 85025; 85610; 85730; 93005; 94640; 94664; 96361; 96374; J7512; Z7502; 99284

== ENCOUNTER 2019-05-27 04:08 | Emergency (ER) | payer MEDICAID ==
[~2019-05-27] VITALS: Ht 180.3 cm; Wt 93.0 kg
--- NOTE | 2019-05-27 04:27 | Emergency Room Report ---
History of Present Illness General Chief Complaint: Dyspnea/Respdistress Source: Patient Present Illness HPI This is a 49-year-old male with no past medical history. He does have a history of methamphetamine abuse. He presents with chief complaint of shortness of breath. Onset today after the second shower couple hours ago. Coughing. Worse with inspiration. Worse with laying flat. No chest pain. No fever chills. Similar symptom a few days ago when he was here. Denies any chest pain. Said that he used methamphetamine yesterday. Allergies: Coded Allergies: No Known Allergies (Unverified , 01/30/16) Patient History Past Medical History: see triage record, old chart reviewed Past Surgical History: none Pertinent Family History: none Social History: Reports: drug use Immunizations: other Reviewed Nursing Documentation: PMH: Agreed; PSxH: Agreed Nursing Documentation-PMH Hx Hypertension: No Hx Pacemaker: No Hx Asthma: No Hx COPD: No Hx Diabetes: No Hx Cancer: No Hx Dialysis: No Hx Cerebrovascular Accident: No Hx Seizures: No Review of Systems Eye: Denies: eye pain, blurred vision ENT: Denies: ear pain, nose congestion, throat swelling Respiratory: Reports: shortness of breath; Denies: cough Cardiovascular: Denies: chest pain, palpitations Gastrointestinal: Denies: abdominal pain, diarrhea, nausea, vomiting Musculoskeletal: Denies: back pain, joint pain Skin: Denies: rash Neurological: Denies: headache, numbness Endocrine: Denies: increased thirst, increased urine Hematologic/Lymphatic: Denies: easy bruising All Other Systems: negative except mentioned in HPI Physical Exam Vital Signs Date Time Temp Pulse Resp B/P (MAP) Pulse Ox O2 Delivery O2 Flow Rate FiO2 05/27/19 04:17 97.9 91 27 149/109 (122) 100 Room Air Vitals with high blood pressure Sp02 EP Interpretation: reviewed, normal General Appearance: well appearing, no apparent distress, alert Head: normocephalic, atraumatic Eyes: bilateral eye PERRL, bilateral eye EOMI ENT: hearing grossly normal, normal pharynx Neck: full range of motion, supple, no meningismus Respiratory: chest non-tender, lungs clear, normal breath sounds Cardiovascular #1: regular rate, rhythm, no murmur Gastrointestinal: normal bowel sounds, non tender, no mass, no organomegaly, no bruit, non-distended Musculoskeletal: back normal, gait/station normal, normal range of motion Neurologic: alert, oriented x3 Psychiatric: mood/affect normal Medical Decision Making Diagnostic Impression: Primary Impression: Dyspnea Qualified Codes: R06.00 - Dyspnea, unspecified Additional Impressions: Methamphetamine abuse 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 He looks comfortable. Oxygenation normal on room air. No evidence of any respiratory distress. No wheezing. Patient refused blood work. Last time he was here BNP was elevated. He does have some pitting edema here. Going to give him IV Lasix but patient refused. Patient refused all blood work. Said he wants to go home. 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 No evidence of ischemic changes on EKG. This symptom is chronic in nature. Patient understand the risk of leaving AGAINST MEDICAL ADVICE. Even though he is leaving AGAINST MEDICAL ADVICE, will put him on Lasix. EKG Diagnostic Results Rate: normal Rhythm: NSR ST Segments: other - Poor R wave progression ASA given to the pt in ED: Yes Rhythm Strip Diag. Results EP Interpretation: yes Rate: 80 Rhythm: NSR, no PVC's, no ectopy Chest X-Ray Diagnostic Results Chest X-Ray Diagnostic Results : Chest X-Ray Ordered: Yes # of Views/Limited/Complete: 1 View Indication: Shortness of Breath EP Interpretation: Yes Interpretation: no consolidation, no effusion, no pneumothorax, other - Mild cardiomegaly Impression: No acute disease Electronically Signed by: Bryan Pereyra MD Last Vital Signs Date Time Temp Pulse Resp B/P (MAP) Pulse Ox O2 Delivery O2 Flow Rate FiO2 05/27/19 04:17 97.9 91 27 149/109 (122) 100 Room Air Status: unchanged Disposition: HOME, SELF-CARE Condition: Stable Scripts Furosemide* (LASIX*) 20 Mg Tablet 20 MG ORAL DAILY, #30 TAB Prov: Bryan Pereyra MD 05/27/19 Referrals: [facility] ([facility]P) Additional Instructions: Stop using drugs. Follow-up with your doctor in 7 days. Leaving AGAINST MEDICAL ADVICE. You may have a serious condition like her heart attack or congestive heart failure. Return if you change your mind. Bryan Pereyra MD May 27, 2019 04:27
[2019-05-27] MEDS ORDERED: Aspirin Baby 81mg ORAL ONE (04:30)
--- NOTE | 2019-05-27 04:30 | NUR ---
ED Nurse Note: Recieved pt from home, here with c/o sob after taking shower and has had it for past 6 months, pt denies cp, pt has restlessness and agitation, pt admits to recent drug use, pt placed on cardiac monitoring, will resume care as ordered and closely monitor.
[2019-05-27] MEDS ORDERED: FUROSEMIDE20 M1 ORAL (04:56)
[2019-05-27 05:00] VITALS: BP 149/109
--- NOTE | 2019-05-27 05:00 | NUR ---
ER DISCHARGE NOTE: Patient is cleared to be discharged per ERMD, pt is aox4, on room air, with stable vital signs. pt was given dc and prescription instructions, pt was able to verbalize understanding, pt id band removed without complications. pt is able to ambulate with steady gait. pt took all belongings.pt refusing to have IV line or labs drawn and wants to go home, at bedside and discussed that pt needs labs, pt continues to refuse.
--- NOTE | 2019-05-27 11:47 | Diagnostic Imaging Report ---
Indication: Dyspnea Comparison: 05/24/2019 A single view chest radiograph was obtained. Findings: No definite infiltrate or pulmonary vascular congestion identified. The heart is borderline enlarged. The bones are unremarkable. The lungs are clear. Impression: No acute disease
--- NOTE | 2019-06-08 16:00 | Cardiology Report ---
APPROVED REPORT EKG Measurement Heart [id number] HI [id number] Normal sinus rhythm Possible Left atrial enlargement Left posterior fascicular block Cannot rule out Inferior infarct, age undetermined Possible Anterior infarct, age undetermined Abnormal ECG
== END 2019-05-27 05:00 | disposition left against medical advice (07) ==
LOC: EMR 04:22
DX: R06.00 Dyspnea, unspecified (principal); F15.10 Other stimulant abuse, uncomplicated; I42.7 Cardiomyopathy due to drug and external agent
CPT/HCPCS: 71045; 93005; 96374; Z7502; 99284

== ENCOUNTER 2020-08-09 15:35 | Emergency (ER) | payer MEDICAID ==
[~2020-08-09] VITALS: Ht 180.3 cm; Wt 79.4 kg
[~2020-08-09 15:35] MED LIST changes: +FUROSEMIDE20 M1 ORAL
--- NOTE | 2020-08-09 16:32 | Emergency Room Report ---
History of Present Illness General Chief Complaint: Sore Throat Source: Patient Present Illness HPI Pt. reports 8/10 in severity mouth and throat pain x 2 days. Pt. is HIV positive, last labs 1 month ago, does not remember specific results. Pt. reports hx of throat cancer as well. He denies Fevers or chills. 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 He reports hx in the past with thrush. Pt. reports previously rx'd diflucan. Pt. denies fevers or chills. He reports pain is exacerbated with eating or drinking. He denies changes in his voice from his baseline. Pt. Denies Cough, SOB, FERNANDEZ, visual changes, dizziness, neck pain/stiffness. Pt. denies any other symptoms. Pt. denies unilateral throat pain. Allergies: Coded Allergies: No Known Allergies (Unverified , 01/30/16) COVID-19 Screening Contact w/high risk pt: No Experienced COVID-19 symptoms?: No COVID-19 Testing performed DURABLE MEDICAL EQUIPMENT REPAIRER: No Patient History Past Medical History: see triage record, HTN, HIV Social History: Reports: smoking Immunizations: UTD Reviewed Nursing Documentation: PMH: Agreed; PSxH: Agreed Nursing Documentation-PMH Hx Hypertension: No Hx Pacemaker: No Hx Asthma: No Hx COPD: No Hx Diabetes: No Hx Cancer: Yes - throat Hx Dialysis: No Hx Cerebrovascular Accident: No Hx Seizures: No Review of Systems All Other Systems: negative except mentioned in HPI Physical Exam Vital Signs Date Time Temp Pulse Resp B/P (MAP) Pulse Ox O2 Delivery O2 Flow Rate FiO2 08/09/20 15:43 98.8 82 17 144/100 (115) 98 Room Air Sp02 EP Interpretation: reviewed, normal General Appearance: no apparent distress, alert, GCS 15, non-toxic Head: normocephalic, atraumatic Eyes: bilateral eye normal inspection, bilateral eye PERRL ENT: hearing grossly normal, normal voice, uvula midline, moist mucus membranes, other - white exudates/plauqes on the pharynx and the bilateral buccal mucosa. No tonsillar swelling noted. Some plaques on the tongue as well. No erythema Neck: full range of motion, no meningismus, no bony tend Respiratory: chest non-tender, lungs clear, normal breath sounds, no respiratory distress, no accessory muscle use, no wheezing, speaking full sentences Cardiovascular #1: regular rate, rhythm Musculoskeletal: normal range of motion, gait/station normal, non-tender Neurologic: alert, motor strength/tone normal, oriented x3, sensory intact, responsive, speech normal Psychiatric: judgement/insight normal Skin: no rash, normal color Lymphatic: no adenopathy Medical Decision Making PA Attestation Dr. Guerrero is my supervising Physician whom patient management has been discussed with. Diagnostic Impression: Primary Impression: Oral thrush ER Course Pt. reports 8/10 in severity mouth and throat pain x 2 days. Pt. is HIV positive, last labs 1 month ago, does not remember specific results. Pt. reports hx of throat cancer as well. He denies Fevers or chills. 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 He reports hx in the past with thrush. Pt. reports previously rx'd diflucan. Pt. denies fevers or chills. He reports pain is exacerbated with eating or drinking. He denies changes in his voice from his baseline. Pt. Denies Cough, SOB, FERNANDEZ, visual changes, dizziness, neck pain/stiffness. Pt. denies any other symptoms. Pt. denies unilateral throat pain. Ddx considered but are not limited to: pharyngitis, strep, DURABLE MEDICAL EQUIPMENT REPAIRER, ludwigs angina, URI, esophagitis, thrush, immune compromise just to name a few. Vital signs: BP is elevated, remaining VS are WNL, pt. is afebrile H&PE are most consistent with: mucocutaneous candidiasis in HIV Positive person . ORDERS: None required at this time as the diagnosis is clinical ED INTERVENTIONS: none required at this time. PT. EDUCATION: REGARDING ONSET OF THRUSH IN IMMUNE COMPROMISED PATIENTS USUALLY REPRESENTING UNDERLYING DISEASE/ SEVERE IMMUNE SYSTEM COMPROMISE> PT> TO follow up with his PCP and Infectious disease. DISCHARGE: At this time pt. is stable for d/c to home. Will provide printed patient care instructions, and any necessary prescriptions. Care plan and follow up instructions have been discussed with the patient prior to discharge. Last Vital Signs Date Time Temp Pulse Resp B/P (MAP) Pulse Ox O2 Delivery O2 Flow Rate FiO2 08/09/20 15:43 98.8 82 17 144/100 (115) 98 Room Air Status: improved Disposition: HOME, SELF-CARE Condition: Stable Scripts Fluconazole (FLUCONAZOLE) 100 Mg Tablet 100 MG ORAL DAILY, #10 TAB 0 Refills Prov: Brenda Hu 08/09/20 Referrals: [facility] (PCP) Patient Instructions: Thrush, Adult Additional Instructions: Take medications as directed. !!!! It is critical that you follow-up with your primary care provider or infectious disease doctor as infection with thrush is an indicator that you have severe immune compromise and require urgent follow-up ! Follow up with a Primary Care Provider in 3-5 days, even if your symptoms have resolved. Return sooner to ED if new symptoms occur, or current symptoms become worse. - Please note that this Emergency Department Report was dictated using [employer] technology software, occasionally this can lead to erroneous entry secondary to interpretation by the dictation equipment. Brenda Hu Aug 09, 2020 16:32
[2020-08-09] MEDS ORDERED: FLUCONAZOLE100 MG ORAL (16:33)
[2020-08-11 08:51] VITALS: BP 144/100
== END 2020-08-09 20:00 | disposition home or self-care (01) ==
LOC: EMR 16:04
DX: B37.0 Candidal stomatitis (principal); B20 Human immunodeficiency virus [HIV] disease; I10 Essential (primary) hypertension; F17.200 Nicotine dependence, unspecified, uncomplicated; Z85.89 Personal history of malignant neoplasm of other organs and systems
CPT/HCPCS: 99282